=== PATIENT | female | born 1980 | race Caucasian/White ===

== ENCOUNTER 2017-05-04 08:27 | Emergency (ER) | payer BC ==
[~2017-05-04] VITALS: Ht 157.5 cm; Wt 68.2 kg
[2017-05-04 08:31] VITALS: BP 135/78; PULSE 86; TEMP 99.7
[2017-05-04 09:08] LABS: PH 5 (5-8); URINE APPEARANCE Hazy; URINE BACTERIA None Seen /hpf; URINE BILIRUBIN Negative (NEGATIVE); URINE BLOOD 2+ (NEGATIVE); URINE COLOR Yellow; URINE GLUCOSE Negative (NEGATIVE); URINE KETONE 2+ (NEGATIVE); URINE RBC 0-2 /hpf
[2017-05-04 09:48] LABS: BASO # 0.1 (0.0-0.2); BASO % 0.6 % (0.0-2.0); EOS # 0.2 (0.0-0.7); EOS % 1.2 % (0-4.0); GRAN # 11.7 (1.4-6.5); GRAN % 77.6 % (42.2-75.2); HEMATOCRIT 41.2 % (37.0-47.0); LYMPH # 1.7 (1.2-3.4); LYMPH % 11.6 % (20.0-51.0); MEAN CELL VOLUME 94 fl (80.0-100.0); MEAN CORPUSCULAR HEMOGLOBIN 32 pg (27.0-31.0); MEAN CORPUSCULAR HGB CONC 34 g/dl (33.0-37.0); MEAN PLATELET VOLUME 11.8 fl (7.4-10.4); MONO # 1.3 (0.1-0.6); MONO % 8.6 % (1.7-9.3); PLATELET COUNT 273 K/mm3 (130-400); RED BLOOD COUNT 4.38 M/mm3 (4.10-5.30); REDCELL DISTRIBUTION WIDTH-CV 12.7 % (11.5-14.5)
[2017-05-04 09:55] LABS: ADJUSTED CALCIUM 9.1 mg/dL (8.4-10.2); ALBUMIN 4.2 gm/dL (3.5-5.0); BILIRUBIN,TOTAL 0.9 mg/dL (0.0-1.0); CALCIUM 9.3 mg/dL (8.4-10.2); CREATININE, serum 0.67 mg/dL (0.52-1.25); POTASSIUM 4.1 mmol/L (3.4-5.0); TOTAL PROTEIN 7.8 gm/dL (6.4-8.2)
[2017-05-04] MEDS ORDERED: FLAGYL500 MG PO (13:21)
[2017-05-04] MEDS ORDERED: DOXYCYCLINE HY100 MG PO (13:21)
[2017-05-04] MEDS ORDERED: NORCO 325 MG-51 TAB PO (13:21)
[2017-05-04] MEDS ORDERED: ZOFRAN 4MG T4 MG/TAB PO (13:23)
[2017-05-04 14:04] LABS: CHLAMYDIA/TRACH by PCR Female NOT DETECTED; NEISSERIA GON by PCR Female NOT DETECTED
== END 2017-05-04 14:02 | disposition home or self-care (01) ==
LOC: COL.ER 08:27
PROVIDERS: Nurse Practitioner; Physician Assistant Medical
DX: N73.9 Female pelvic inflammatory disease, unspecified (principal); J45.909 Unspecified asthma, uncomplicated; Z32.02 Encounter for pregnancy test, result negative
CPT/HCPCS: J0696; J1170; J2405; J3010; J7030; Q9967

== ENCOUNTER → 2018-10-27 | Outpatient (CLI) | payer OTHER ==
[~2018-10-27] MED LIST: DOXYCYCLINE HY100 MG PO; FLAGYL500 MG PO; NORCO 325 MG-51 TAB PO; ZOFRAN 4MG T4 MG/TAB PO
== END ==
LOC: COL.RAD 10:54
DX: N92.0 Excessive and frequent menstruation with regular cycle (principal); N83.8 Other noninflammatory disorders of ovary, fallopian tube and broad ligament

== ENCOUNTER → 2020-08-08 | Outpatient (CLI) | payer OTHER | LOC: MC.RAD 16:13 | DX: Z12.31 Encounter for screening mammogram for malignant neoplasm of breast (principal); N63.10 Unspecified lump in the right breast, unspecified quadrant ==

== ENCOUNTER → 2020-08-15 | Outpatient (CLI) | payer OTHER | LOC: MC.RAD 06:54 | DX: N60.01 Solitary cyst of right breast (principal) ==